=== PATIENT | male | born 1980 | race Asian ===

== ENCOUNTER 2020-11-22 14:27 | Emergency (ER) | payer OTHER ==
[~2020-11-22] VITALS: Ht 170.2 cm; Wt 79.4 kg
[2020-11-22 14:30] VITALS: BP_SYST 146
== END 2020-11-22 15:45 | disposition home or self-care (01) ==
LOC: SED 14:27
DX: S66.114A Strain of flexor muscle, fascia and tendon of right ring finger at wrist and hand level, initial encounter (principal); X50.0XXA Overexertion from strenuous movement or load, initial encounter; Y93.89 Activity, other specified; Y92.89 Other specified places as the place of occurrence of the external cause; Y99.8 Other external cause status
CPT/HCPCS: 99283